=== PATIENT | female | born 1995 | race Caucasian/White ===

== ENCOUNTER 2018-12-03 12:01 | Inpatient (IN) | payer OTHER ==
[~2018-12-03] VITALS: Ht 160 cm; Wt 3.2 kg
[2018-12-24] MEDS ORDERED: PRENATAL TABLE1 EACH PO (09:49)
[2018-12-24] MEDS ORDERED: VALTREX1000 MG PO (10:52)
== END 2018-12-26 13:27 | disposition home or self-care (01) | DRG 788 ==
LOC: OB/GYN 12-17 15:15 → LDR 12-24 09:14 → O/R 12-24 12:23 → OB/GYN 12-24 14:25
PROVIDERS: Obstetrics & Gynecology; ADMIT Obstetrics & Gynecology Maternal & Fetal Medicine
PROC: 4A1HXCZ Monitoring of Products of Conception, Cardiac Rate, External Approach (ICD-10-PCS; 2018-12-24)
PROC: 10D00Z1 Extraction of Products of Conception, Low, Open Approach (ICD-10-PCS; principal; 2018-12-24 13:15)
DX: O82 Encounter for cesarean delivery without indication (principal); O64.1XX0 Obstructed labor due to breech presentation, not applicable or unspecified; Z3A.38 38 weeks gestation of pregnancy; Z37.0 Single live birth

== ENCOUNTER 2023-11-06 14:34 | Inpatient (IN) | payer OTHER ==
[~2023-11-06] VITALS: Ht 162.6 cm; Wt 3.2 kg
[~2023-11-06 14:34] MED LIST: PRENATAL TABLE1 EACH PO; VALTREX1000 MG PO
[2023-11-06 15:06] LABS: HEMATOCRIT 36.6 % (36.0-45.00); HEMOGLOBIN 12.6 g/dL (12.0-15.00); MEAN CELL VOLUME 90.2 fL (80.00-100.00); MEAN CORPUSCULAR HEMOGLOBIN 31.2 pg (27.00-32.0); MEAN CORPUSCULAR HGB CONC 34.6 g/dl (32.0-36.0); PLATELET COUNT 234 K/uL (150-450); RED BLOOD COUNT 4.05 M/uL (4.00-6.00); RED CELL DISTRIBUTION WIDTH 13.7 % (11.5-14.5)
[2023-11-06 15:28] LABS: INR 0.99; PARTIAL THROMBOPLASTIN TIME 30.5 SECONDS (22.0-34.0); PROTHROMBIN TIME 10.4 SECONDS (9.0-11.5)
[2023-11-06 15:45] LABS: ALBUMIN 2.9 gm/dL (3.4-5.0); BILIRUBIN TOTAL 0.29 mg/dL (0.3-1.2); CALCIUM 9.4 mg/dL (8.5-10.1); CREATININE SERUM 0.47 mg/dL (0.55-1.02); GFR 156.66; GLOBULINA 3.8 G/DL (2.4-3.5); POTASSIUM 3.54 mEq/L (3.5-5.1); TOTAL PROTEIN 6.7 gm/dL (6.4-8.2)
[2023-11-14] MEDS ORDERED: PEPCID AC20 MG PO (08:03)
[2023-11-14] MEDS ORDERED: CEFAZOLIN SODIUM 1,000 MG VIAL IV NR (11:15)
[2023-11-14] MEDS ORDERED: OXYTOCIN 10 UNITS/ML VIAL IV ONE (11:15)
[2023-11-14] MEDS ORDERED: MEPERIDINE HCL/PF 50 MG/ML VIAL IM PRN (12:15)
[2023-11-14] MEDS ORDERED: OXYTOCIN 1,000 ML IV SCH (12:15)
[2023-11-14] MEDS ORDERED: IBUprofen 400 MG TABLET PO PRN (12:15)
[2023-11-15] MEDS ORDERED: OxyCODONE HCL/APAP UD (PERCOCET) PO PRN (08:00)
[2023-11-15 13:37] LABS: HEMATOCRIT 35.1 % (36.0-45.00); HEMOGLOBIN 12.1 g/dL (12.0-15.00); MEAN CELL VOLUME 91.8 fL (80.00-100.00); MEAN CORPUSCULAR HEMOGLOBIN 31.6 pg (27.00-32.0); MEAN CORPUSCULAR HGB CONC 34.4 g/dl (32.0-36.0); PLATELET COUNT 251 K/uL (150-450); RED BLOOD COUNT 3.82 M/uL (4.00-6.00); RED CELL DISTRIBUTION WIDTH 13.7 % (11.5-14.5)
== END 2023-11-17 14:27 | disposition home or self-care (01) | DRG 785 ==
LOC: EDBD 11-14 07:00 → LDR 11-14 07:00 → O/R 11-14 08:00 → OB/GYN 11-14 12:51 → LDR 11-14 14:32 → OB/GYN 11-17 14:27
PROVIDERS: Obstetrics & Gynecology; ADMIT Obstetrics & Gynecology Maternal & Fetal Medicine; ATTEND Obstetrics & Gynecology Maternal & Fetal Medicine
PROC: 0UB70ZZ Excision of Bilateral Fallopian Tubes, Open Approach (ICD-10-PCS; 2023-11-14)
PROC: 4A1HXCZ Monitoring of Products of Conception, Cardiac Rate, External Approach (ICD-10-PCS; 2023-11-14)
PROC: 10D00Z1 Extraction of Products of Conception, Low, Open Approach (ICD-10-PCS; principal; 2023-11-14 07:00)
DX: O34.211 Maternal care for low transverse scar from previous cesarean delivery (principal); Z3A.38 38 weeks gestation of pregnancy; Z37.0 Single live birth; Z20.822 Contact with and (suspected) exposure to COVID-19; Z30.2 Encounter for sterilization